=== PATIENT | female | born 1945 | race Caucasian/White ===

== ENCOUNTER → 2023-04-05 06:55 | Outpatient (REF) | payer MEDICARE, OTHER, SELFPAY ==
[2023-04-05 08:22] LABS: Microalbumin, Random Urine 2.7 mg/dl (0.6-1.7)
[2023-04-05 08:30] LABS: ALT (SGPT) 16 U/L (0-35); AST (SGOT) 24 U/L (14-36); Albumin 4.5 g/dl (3.5-5.0); Alkaline Phosphatase 101 U/L (38-126); Blood Urea Nitrogen 20 mg/dl (7-17); Calcium 9.9 mg/dl (8.4-10.2); Carbon Dioxide 28 mmol/L (22-30); Chloride 103 mmol/L (98-107); Glucose 133 mg/dl (70-99); HDL Cholesterol 51 mg/dl; LDL Cholesterol, Calculated 84 mg/dl; Potassium 4.1 mmol/L (3.5-5.1); Sodium 136 mmol/L (135-145); Total Bilirubin 1.4 mg/dl (0.2-1.3); Total Cholesterol 178 mg/dl (50-199); Total Protein 7.2 g/dl (6.3-8.2); Triglyceride 215 mg/dl (10-149); Very Low Density Lipoprotein 43 mg/dl (0-30); eGFR 58.39
[2023-04-05 08:34] LABS: Intact PTH 64.2 pg/ml (13.6-85.8)
[2023-04-05 08:37] LABS: Microalbumin/creatinine Ratio 15.4 mg/g
[2023-04-05 08:40] LABS: Free T4 1.83 ng/dl (0.78-2.19); Vitamin D, 25-OH*** 47.2 ng/mL (30-80)
[2023-04-05 08:53] LABS: TSH 0.06 uIU/ml (0.47-4.68)
[2023-04-05 09:29] LABS: Glycohemoglobin (HgbA1c) 7.6 % (4.0-5.6)
== END ==
LOC: REG 06:55
PROVIDERS: ATTENDING PHYSICIAN Family Medicine; REFERRING PHYSICIAN Internal Medicine Cardiovascular Disease
DX: E21.3 Hyperparathyroidism, unspecified (principal); E11.65 Type 2 diabetes mellitus with hyperglycemia; E78.2 Mixed hyperlipidemia; E55.9 Vitamin D deficiency, unspecified; E11.9 Type 2 diabetes mellitus without complications
CPT/HCPCS: 36415; 80053; 80061; 82043; 82306; 82570; 83036; 83970; 84439; 84443

== ENCOUNTER → 2023-06-12 07:00 | Outpatient (REF) | payer MEDICARE, OTHER, SELFPAY ==
[2023-06-12 09:31] LABS: TSH Reflex To Free T4 0.36 uIU/ml (0.47-4.68)
[2023-06-12 10:40] LABS: Free T4 1.31 ng/dl (0.78-2.19)
== END ==
LOC: REG 07:00
PROVIDERS: ATTENDING PHYSICIAN Family Medicine; FAMILY PHYSICIAN Internal Medicine Cardiovascular Disease
DX: Z79.899 Other long term (current) drug therapy (principal); E03.9 Hypothyroidism, unspecified; R89.9 Unspecified abnormal finding in specimens from other organs, systems and tissues
CPT/HCPCS: 36415; 84439; 84443

== ENCOUNTER → 2023-07-24 06:53 | Outpatient (REF) | payer MEDICARE, OTHER, SELFPAY ==
[2023-07-24 10:40] LABS: TSH Reflex To Free T4 0.28 uIU/ml (0.47-4.68)
[2023-07-24 11:10] LABS: Free T4 1.13 ng/dl (0.78-2.19)
== END ==
LOC: REG 06:53
PROVIDERS: ATTENDING PHYSICIAN Family Medicine; REFERRING PHYSICIAN Internal Medicine Cardiovascular Disease
DX: E03.9 Hypothyroidism, unspecified (principal); I10 Essential (primary) hypertension
CPT/HCPCS: 36415; 84439; 84443

== ENCOUNTER → 2023-11-01 07:04 | Outpatient (REF) | payer MEDICARE, OTHER, SELFPAY ==
[2023-11-01 08:24] LABS: ALT (SGPT) 18 U/L (0-35); AST (SGOT) 26 U/L (14-36); Albumin 4.6 g/dl (3.5-5.0); Alkaline Phosphatase 87 U/L (38-126); Blood Urea Nitrogen 22 mg/dl (7-17); Calcium 10.1 mg/dl (8.4-10.2); Carbon Dioxide 28 mmol/L (22-30); Chloride 99 mmol/L (98-107); Glucose 158 mg/dl (70-99); Potassium 5.1 mmol/L (3.5-5.1); Sodium 139 mmol/L (135-145); eGFR 51.75
[2023-11-01 08:38] LABS: Intact PTH 72.7 pg/ml (13.6-85.8)
[2023-11-01 09:26] LABS: Free T4 0.89 ng/dl (0.78-2.19)
[2023-11-01 09:27] LABS: Glycohemoglobin (HgbA1c) 7.1 % (4.0-5.6); Microalbumin, Random Urine 0.7 mg/dl (0.6-1.7); Microalbumin/creatinine Ratio 7.7 mg/g
== END ==
LOC: REG 07:04
PROVIDERS: ATTENDING PHYSICIAN Family Medicine; REFERRING PHYSICIAN Internal Medicine Cardiovascular Disease
DX: E11.65 Type 2 diabetes mellitus with hyperglycemia (principal); E55.9 Vitamin D deficiency, unspecified; E21.3 Hyperparathyroidism, unspecified; E03.9 Hypothyroidism, unspecified
CPT/HCPCS: 36415; 80053; 82043; 82570; 83036; 83970; 84439; 84443

== ENCOUNTER → 2024-05-01 07:09 | Outpatient (REF) | payer MEDICARE, OTHER, SELFPAY ==
[2024-05-01 08:27] LABS: Microalbumin, Random Urine <0.6 mg/dl (0.6-1.7)
[2024-05-01 08:35] LABS: ALT (SGPT) 17 U/L (0-35); AST (SGOT) 23 U/L (14-36); Albumin 4.9 g/dl (3.5-5.0); Alkaline Phosphatase 98 U/L (38-126); Blood Urea Nitrogen 18 mg/dl (7-17); Calcium 10.3 mg/dl (8.4-10.2); Carbon Dioxide 28 mmol/L (22-30); Chloride 99 mmol/L (98-107); Glucose 178 mg/dl (70-99); Potassium 4.8 mmol/L (3.5-5.1); Sodium 138 mmol/L (135-145); Total Bilirubin 1.8 mg/dl (0.2-1.3); Total Protein 7.4 g/dl (6.3-8.2); eGFR 57.66
[2024-05-01 08:52] LABS: TSH Reflex To Free T4 8.82 uIU/ml (0.47-4.68)
[2024-05-01 09:21] LABS: Free T4 0.95 ng/dl (0.78-2.19)
[2024-05-01 11:23] LABS: Intact PTH 73.8 pg/ml (13.6-85.8)
[2024-05-02 19:32] LABS: Vitamin D 1,25 Dihydroxy 28.4 pg/mL (19.9-79.3)
== END ==
LOC: REG 07:09
PROVIDERS: ATTENDING PHYSICIAN Family Medicine; REFERRING PHYSICIAN Internal Medicine Cardiovascular Disease
DX: E11.65 Type 2 diabetes mellitus with hyperglycemia (principal); E11.3291 Type 2 diabetes mellitus with mild nonproliferative diabetic retinopathy without macular edema, right eye; E11.22 Type 2 diabetes mellitus with diabetic chronic kidney disease; E11.69 Type 2 diabetes mellitus with other specified complication; N18.31 Chronic kidney disease, stage 3a; E78.2 Mixed hyperlipidemia; E21.3 Hyperparathyroidism, unspecified; E03.9 Hypothyroidism, unspecified; I10 Essential (primary) hypertension; E55.9 Vitamin D deficiency, unspecified; M85.859 Other specified disorders of bone density and structure, unspecified thigh
CPT/HCPCS: 36415; 80053; 82043; 82652; 83036; 83970; 84439; 84443

== ENCOUNTER → 2024-10-22 07:00 | Outpatient (REF) | payer MEDICARE, OTHER, SELFPAY ==
[2024-10-22 08:00] LABS: Hematocrit 35.5 % (37.0-47.0); Hemoglobin 11.5 g/dL (12.0-16.0); Mean Corp Hgb Conc. 32.4 g/dL (33.0-37.0); Mean Corpuscular Volume 90.8 fL (81.0-99.0); Nucleated Red Blood Cells % 0 %; Platelet Count 331 10^3/uL (130-400); Red Cell Dist. Width 13.6 % (11.5-14.5)
[2024-10-22 08:37] LABS: Microalbumin, Random Urine 0.8 mg/dl (0.6-1.7)
[2024-10-22 09:00] LABS: Microalb - Urine Creatinine 180.000 mg/dl
[2024-10-22 09:11] LABS: ALT (SGPT) 15 U/L (0-35); AST (SGOT) 21 U/L (14-36); Albumin 4.7 g/dl (3.5-5.0); Alkaline Phosphatase 95 U/L (38-126); Blood Urea Nitrogen 23 mg/dl (7-17); Calcium 9.9 mg/dl (8.4-10.2); Carbon Dioxide 29 mmol/L (22-30); Chloride 101 mmol/L (98-107); Glucose 157 mg/dl (70-99); HDL Cholesterol 50 mg/dl; LDL Cholesterol, Calculated 75 mg/dl; Potassium 4.9 mmol/L (3.5-5.1); Sodium 137 mmol/L (135-145); Total Protein 7.3 g/dl (6.3-8.2); Very Low Density Lipoprotein 67 mg/dl (0-30); eGFR 57.66
== END ==
LOC: REG 07:00
PROVIDERS: ATTENDING PHYSICIAN Family Medicine; REFERRING PHYSICIAN Internal Medicine Cardiovascular Disease
DX: E03.9 Hypothyroidism, unspecified (principal); E11.65 Type 2 diabetes mellitus with hyperglycemia; E11.3291 Type 2 diabetes mellitus with mild nonproliferative diabetic retinopathy without macular edema, right eye; E11.22 Type 2 diabetes mellitus with diabetic chronic kidney disease; E11.69 Type 2 diabetes mellitus with other specified complication; N18.31 Chronic kidney disease, stage 3a
CPT/HCPCS: 36415; 80053; 80061; 82043; 82570; 82652; 84443; 85025